=== PATIENT | male | born 1990 | race African-American/Black ===

== ENCOUNTER 2019-07-14 17:41 | Emergency (ER) | payer SELFPAY ==
[2019-07-14] MEDS ORDERED: METHYLPREDNISOLONE 125 MG INJ ONE (18:18)
[2019-07-14] MEDS ORDERED: IPRATROPIUM BROM 0.5MG/2.5ML ONE (18:19)
[2019-07-14] MEDS ORDERED: ALBUTEROL 2.5 MG/3 ML NEB SOL ONE ×2 (18:19→19:33)
[2019-07-14 18:26] LABS: Absolute Lymphocytes (CBC) 4.8 K/uL (0.7-4.9); Basophils % 0.8 % (0-1.3); Hematocrit 42.1 % (39.6-49.0); Lymphocytes % 37.3 % (15.3-44.8); MPV 9.2 fL (7.6-11.3); RBC Red Blood Cell Count 4.67 M/uL (4.33-5.43)
--- NOTE | 2019-07-14 18:39 | RAD REPORT ---
EXAM DESCRIPTION: RAD - Chest Single View - 07/14/2019 6:19 pm CLINICAL HISTORY: COUGH Chest pain. COMPARISON: <Comparisons> FINDINGS: Portable technique limits examination quality. The lungs are grossly clear. The heart is normal in size. No displaced fractures. IMPRESSION: No acute intrathoracic process suspected.
[2019-07-14 18:43] LABS: ALT/SGPT 31 U/L (12-78); AST/SGOT 27 U/L (15-37); Albumin 3.8 g/dL (3.4-5.0); Alkaline Phosphatase 102 U/L (45-117); BUN Blood Urea Nitrogen 15 mg/dL (7-18); Bicarbonate 28 mmol/L (21-32); Bilirubin Direct 0.1 mg/dL (0-0.2); Bilirubin Total 0.4 mg/dL (0.2-1.0); Glucose Level 86 mg/dL (74-106); Magnesium 2.3 mg/dL (1.8-2.4); NT PRO-BNP 68 pg/mL (<125); Potassium 3.8 mmol/L (3.5-5.1); Protein, Total 8.6 g/dL (6.4-8.2); Sodium Level 141 mmol/L (136-145); Troponin (Emerg Dept Use Only) < 0.02 ng/mL (0.0-0.045)
[2019-07-14] MEDS ORDERED: AZITHROMYCIN 250 MG TAB ONE (19:06)
[2019-07-14] MEDS ORDERED: predniSONE 20 MG TAB ONE (19:07)
[2019-07-14] MEDS ORDERED: CEFTRIAXONE/SWI 1gm 1 GM/10 ML SYR ONE (19:07)
--- NOTE | 2019-07-14 19:32 | ER ---
Nurse's Notes [facility] Name: Jb Siddiqui Age: 29 yrs Sex: Male : 1990 Arrival Date: 07/14/2019 Time: 17:47 Bed 7 Private MD: Diagnosis: Asthma;Bronchitis, not specified as acute or chronic Presentation: 07/14 17:54 Presenting complaint: Nonproductive cough, chest tightness, and SOB x 3 days. Denies hb fever. Transition of care: patient was not received from another setting of care. Onset of symptoms was July 12, 2019. Risk Assessment: Do you want to hurt yourself or someone else? Patient reports no desire to harm self or others. Care prior to arrival: None. 17:54 Method Of Arrival: Ambulatory hb 17:54 Acuity: JOSELO 3 hb 18:26 Initial Sepsis Screen: Does the patient meet any 2 criteria? No. Patient's initial sv sepsis screen is negative. Does the patient have a suspected source of infection? No. Patient's initial sepsis screen is negative. Triage Assessment: 20:41 General: Appears in no apparent distress. Respiratory: the patient has mild shortness ao of breath. Historical: - Allergies: 17:55 No Known Allergies; hb - PMHx: 17:55 Asthma; hb - PSHx: 17:55 None; hb - Immunization history:: Adult Immunizations up to date. - Coronavirus screen:: The patient has NOT traveled to [place] in the past 14 days. The patient has NOT had contact with known/suspected case of Coronavirus? Proceed with normal triage procedures. - Social history:: Smoking status: Patient denies any tobacco usage or history of. - Family history:: not pertinent. - Ebola Screening: : No symptoms or risks identified at this time. Screenin:10 Abuse screen: Denies threats or abuse. Denies injuries from another. Nutritional sv screening: No deficits noted. Tuberculosis screening: No symptoms or risk factors identified. Fall Risk None identified. Assessment: 18:10 General: Appears in no apparent distress. uncomfortable, well groomed, well developed, sv Behavior is calm, cooperative, appropriate for age. Pain: Complains of pain in chest Pain currently is 10 out of 10 on a pain scale. Quality of pain is described as "tightness" Pain began 2-3 days ago. Is intermittent, episodic, Aggravated by "deep breathing". Neuro: Level of Consciousness is awake, alert, obeys commands, Oriented to person, place, time, situation, Moves all extremities. Full function Gait is steady, Speech is normal. Cardiovascular: Heart tones S1 S2 present Patient's skin is warm and dry. Rhythm is sinus rhythm. Respiratory: Reports shortness of breath on exertion cough that is non-productive, pain with cough Airway is patent Respiratory effort is even, unlabored, Respiratory pattern is regular, symmetrical, Breath sounds with wheezes bilaterally. Derm: Skin is intact, Skin is pink, warm \\T\\ dry. Musculoskeletal: Range of motion: intact in all extremities. 19:20 Reassessment: Patient appears in no apparent distress at this time. Patient and/or sv family updated on plan of care and expected duration. Pain level reassessed. Patient is alert, oriented x 3, equal unlabored respirations, skin warm/dry/pink. Patient states feeling better. Patient states symptoms have improved. 20:41 Reassessment: DC given to patient. patient agree with the POC and to follow up with PCP amalia and Dr Lopze. Patient agree with a smoking sensations and viping. Patient was educated in smoking and viping. Vital Signs: 17:55 BP 151 / 101; Pulse 66; Resp 20; Temp 97.5; Pulse Ox 99% on R/A; Weight 102.06 kg; hb Height 6 ft. (182.88 cm); Pain 10/10; 18:55 BP 145 / 89; Pulse 89; Resp 20; Pulse Ox 96% ; sv 19:32 BP 145 / 89; Pulse 86; Resp 18; Pulse Ox 100% ; ao 20:40 BP 138 / 80; Pulse 86; Resp 19; Pulse Ox 100% on R/A; Pain 0/10; ao 17:55 Body Mass Index 30.52 (102.06 kg, 182.88 cm) ED Course: 17:47 Patient arrived in ED. fj1 17:55 Triage completed. hb 17:55 Arm band placed on. 17:57 Sudhakar Siddiqui MD is Attending Physician. [facility] 17:58 Patient has correct armband on for positive identification. Bed in low position. Call sv light in reach. Adult w/ patient. 17:59 Desiree Zaragoza RN is Primary Nurse. sv 18:10 Inserted saline lock: 20 gauge in left forearm, using aseptic technique. Blood sv collected. Flushed left forearm with 2 ml normal saline. 18:15 quality assurance monitor body on. Pulse ox on. NIBP on. mh5 18:15 EKG done, by ED staff, reviewed by Sudhakar Siddiqui MD. 5 18:25 Troponin (emerg Dept Use Only) Sent. sv 18:26 ED physician to see patient. sv 18:26 Basic Metabolic Panel Sent. sv 18:26 CBC with Diff Sent. sv 18:26 LFT's Sent. sv 18:26 Magnesium Sent. sv 18:26 NT PRO-BNP Sent. sv 18:26 XRAY Chest (1 view) Sent. sv 19:26 Report given to Pawel AUSTIN and Christian AUSTIN. sv 19:29 Aaron Brito MD is Referral Physician. nahid 20:35 No provider procedures requiring assistance completed. IV discontinued, intact, ao bleeding controlled, No redness/swelling at site. Pressure dressing applied. Administered Medications: 18:20 Drug: Albuterol - atroVENT (3:1) (2.5 mg - 0.5 mg) 3 ml Route: Nebulizer; sv 19:06 Follow up: Response: No adverse reaction sv 18:20 Drug: SOLU-Medrol 125 mg Route: IVP; Site: left forearm; sv 19:06 Follow up: Response: No adverse reaction sv 19:18 Drug: Rocephin 1 grams Route: IV; Rate: per protocol; Site: left forearm; sv 20:45 Follow up: Response: No adverse reaction; IV Status: Completed infusion; IV Intake: 10mlao 19:20 Drug: Zithromax 500 mg Route: PO; sv 20:45 Follow up: Response: No adverse reaction ao 19:20 Drug: predniSONE 60 mg Route: PO; sv 20:45 Follow up: Response: No adverse reaction ao 19:32 Drug: Albuterol 5 mg Route: Inhalation; ao 20:44 Follow up: Response: No adverse reaction ao 20:11 Drug: Decadron - Dexamethasone 8 mg Route: IVP; Site: left femoral; ao 20:44 Follow up: Response: No adverse reaction ao 20:12 Drug: Zofran 4 mg Route: IVP; Site: left forearm; ao 20:44 Follow up: Response: No adverse reaction ao Intake: 20:45 IV: 10ml; Total: 10ml. ao Outcome: 19:29 Discharge ordered by . nahid 20:40 Discharged to home ambulatory. ao 20:40 Condition: good 20:40 Discharge instructions given to patient, Instructed on discharge instructions, follow up and referral plans. Demonstrated understanding of instructions, follow-up care, medications, Prescriptions given X 4. 20:44 Patient left the ED. ao Signatures: Desiree Zaragoza RN RN sv Anderson, Corey, MD MD cha Ortiz, Alex, RN RN ao Baxter, Heather, RN RN hb Martinez, Maria [facility] Kamron Simmons [facility] Corrections: (The following items were deleted from the chart) 19:34 19:32 BP 134 / 75; Pulse 114bpm; Resp 24bpm; Pulse Ox 100%; ao ao
--- NOTE | 2019-07-14 19:33 | EDPHYS ---
Physician Documentation [facility] Name: Jb Siddiqui Age: 29 yrs Sex: Male : 1990 Arrival Date: 07/14/2019 Time: 17:47 Bed 7 Private MD: ED Physician Sudhakar Siddiqui HPI: 07/14 18:36 This 29 yrs old Black Male presents to ER via Ambulatory with complaints of Shortness nahid Of Breath, Breathing Difficulty. 18:36 The patient has shortness of breath at rest, with light activity. Onset: The nahid symptoms/episode began/occurred 2 day(s) ago. Duration: The symptoms are continuous, and are steadily getting worse. The patient's shortness of breath is aggravated by coughing. Associated signs and symptoms: Pertinent positives: non-productive cough. Severity of symptoms: At their worst the symptoms were mild in the emergency department the symptoms are unchanged. The patient has experienced similar episodes in the past, several times. Historical: - Allergies: 17:55 No Known Allergies; hb - PMHx: 17:55 Asthma; hb - PSHx: 17:55 None; hb - Immunization history:: Adult Immunizations up to date. - Coronavirus screen:: The patient has NOT traveled to [place] in the past 14 days. The patient has NOT had contact with known/suspected case of Coronavirus? Proceed with normal triage procedures. - Social history:: Smoking status: Patient denies any tobacco usage or history of. - Family history:: not pertinent. - Ebola Screening: : No symptoms or risks identified at this time. ROS: 18:36 Constitutional: Negative for fever, chills, and weight loss, Eyes: Negative for injury, nahid pain, redness, and discharge, ENT: Negative for injury, pain, and discharge, Neck: Negative for injury, pain, and swelling, Cardiovascular: Negative for chest pain, palpitations, and edema, Abdomen/GI: Negative for abdominal pain, nausea, vomiting, diarrhea, and constipation, Back: Negative for injury and pain, : Negative for injury, bleeding, discharge, and swelling, MS/Extremity: Negative for injury and deformity, Skin: Negative for injury, rash, and discoloration, Neuro: Negative for headache, weakness, numbness, tingling, and seizure, Psych: Negative for depression, anxiety, suicide ideation, homicidal ideation, and hallucinations, Allergy/Immunology: Negative for hives, rash, and allergies, Endocrine: Negative for neck swelling, polydipsia, polyuria, polyphagia, and marked weight changes, Hematologic/Lymphatic: Negative for swollen nodes, abnormal bleeding, and unusual bruising. 18:36 Respiratory: Positive for cough, shortness of breath, wheezing, expiratory. Exam: 18:36 Constitutional: This is a well developed, well nourished patient who is awake, alert, nahid and in no acute distress. Head/Face: Normocephalic, atraumatic. Eyes: Pupils equal round and reactive to light, extra-ocular motions intact. Lids and lashes normal. Conjunctiva and sclera are non-icteric and not injected. Cornea within normal limits. Periorbital areas with no swelling, redness, or edema. ENT: Nares patent. No nasal discharge, no septal abnormalities noted. Tympanic membranes are normal and external auditory canals are clear. Oropharynx with no redness, swelling, or masses, exudates, or evidence of obstruction, uvula midline. Mucous membranes moist. Neck: Trachea midline, no thyromegaly or masses palpated, and no cervical lymphadenopathy. Supple, full range of motion without nuchal rigidity, or vertebral point tenderness. No Meningismus. Chest/axilla: Normal chest wall appearance and motion. Nontender with no deformity. No lesions are appreciated. Cardiovascular: Regular rate and rhythm with a normal S1 and S2. No gallops, murmurs, or rubs. Normal PMI, no JVD. No pulse deficits. Abdomen/GI: Soft, non-tender, with normal bowel sounds. No distension or tympany. No guarding or rebound. No evidence of tenderness throughout. Back: No spinal tenderness. No costovertebral tenderness. Full range of motion. Male : Normal genitalia with no discharge or lesions. Skin: Warm, dry with normal turgor. Normal color with no rashes, no lesions, and no evidence of cellulitis. MS/ Extremity: Pulses equal, no cyanosis. Neurovascular intact. Full, normal range of motion. Neuro: Awake and alert, GCS 15, oriented to person, place, time, and situation. Cranial nerves II-XII grossly intact. Motor strength 5/5 in all extremities. Sensory grossly intact. Cerebellar exam normal. Normal gait. Psych: Awake, alert, with orientation to person, place and time. Behavior, mood, and affect are within normal limits. 18:36 Respiratory: mild respiratory distress is noted, moderate respiratory distress is noted, Respirations: labored breathing, that is mild, Breath sounds: decreased breath sounds, rhonchi, that are mild, wheezing: that is mild, Respiratory rate: 20 18:36 Musculoskeletal/extremity: DVT Exam: No signs of deep vein thrombosis. no pain, no swelling, no tenderness, negative Homans' sign noted on exam, no appreciated bluish discoloration, no erythema, no increased warmth. Vital Signs: 17:55 BP 151 / 101; Pulse 66; Resp 20; Temp 97.5; Pulse Ox 99% on R/A; Weight 102.06 kg; hb Height 6 ft. (182.88 cm); Pain 10/10; 18:55 BP 145 / 89; Pulse 89; Resp 20; Pulse Ox 96% ; sv 19:32 BP 145 / 89; Pulse 86; Resp 18; Pulse Ox 100% ; ao 20:40 BP 138 / 80; Pulse 86; Resp 19; Pulse Ox 100% on R/A; Pain 0/10; ao 17:55 Body Mass Index 30.52 (102.06 kg, 182.88 cm) hb MDM: 17:58 Patient medically screened. [facility] 18:38 Data reviewed: vital signs, nurses notes, lab test result(s), EKG, radiologic studies, nahid plain films. 02 17:58 Order name: Troponin (emerg Dept Use Only) [facility] 07/14 17:58 Order name: Basic Metabolic Panel [facility] 07/14 17:58 Order name: CBC with Diff [facility] 07/14 17:58 Order name: LFT's [facility] 07/14 17:58 Order name: Magnesium [facility] 07/14 17:58 Order name: NT PRO-BNP [facility] 07/14 17:58 Order name: XRAY Chest (1 view) [facility] 07/14 18:29 Order name: CBC with Automated Diff; Complete Time: 18:36 [facility] 07/14 18:45 Order name: Basic Metabolic Panel; Complete Time: 19:02 [facility] 07/14 18:45 Order name: Liver (Hepatic) Function; Complete Time: 19:02 [facility] 07/14 18:45 Order name: Troponin (Emerg Dept Use Only); Complete Time: 19:02 [facility] 07/14 18:45 Order name: NT PRO-BNP; Complete Time: 19:02 [facility] 07/14 18:45 Order name: Magnesium; Complete Time: 19:02 [facility] 07/14 20:14 Order name: RAD [facility] 07/14 17:58 Order name: EKG - Nurse/Tech; Complete Time: 18:15 [facility] 07/14 17:58 Order name: EKG; Complete Time: 17:59 [facility] 07/14 17:58 Order name: Cardiac monitoring; Complete Time: 18:15 [facility] 07/14 17:58 Order name: IV Saline Lock; Complete Time: 18:26 [facility] 07/14 17:58 Order name: Labs collected and sent; Complete Time: 18:29 [facility] 07/14 17:58 Order name: O2 Per Protocol; Complete Time: 18:25 [facility] 07/14 17:58 Order name: O2 Sat Monitoring; Complete Time: 18:25 [facility] Administered Medications: 18:20 Drug: Albuterol - atroVENT (3:1) (2.5 mg - 0.5 mg) 3 ml Route: Nebulizer; sv 19:06 Follow up: Response: No adverse reaction sv 18:20 Drug: SOLU-Medrol 125 mg Route: IVP; Site: left forearm; sv 19:06 Follow up: Response: No adverse reaction sv 19:18 Drug: Rocephin 1 grams Route: IV; Rate: per protocol; Site: left forearm; sv 20:45 Follow up: Response: No adverse reaction; IV Status: Completed infusion; IV Intake: 10mlao 19:20 Drug: Zithromax 500 mg Route: PO; sv 20:45 Follow up: Response: No adverse reaction ao 19:20 Drug: predniSONE 60 mg Route: PO; sv 20:45 Follow up: Response: No adverse reaction ao 19:32 Drug: Albuterol 5 mg Route: Inhalation; ao 20:44 Follow up: Response: No adverse reaction ao 20:11 Drug: Decadron - Dexamethasone 8 mg Route: IVP; Site: left femoral; ao 20:44 Follow up: Response: No adverse reaction ao 20:12 Drug: Zofran 4 mg Route: IVP; Site: left forearm; ao 20:44 Follow up: Response: No adverse reaction ao Disposition: 07/14/19 19:29 Discharged to Home. Impression: Asthma, Bronchitis, not specified as acute or chronic. - Condition is Stable. - Discharge Instructions: Acute Bronchitis, Adult, Asthma, Adult, Upper Respiratory Infection, Adult, Upper Respiratory Infection, Adult, [id number], Asthma, Adult, [id number]. - Prescriptions for Albuterol Sulfate 2.5 mg /3 mL (0.083 %) Inhalation Solution for Nebulization - inhale 1 unit by NEBULIZATION route every 8 hours As needed; 1 box. Zithromax Z- Lion 250 mg Oral Tablet - take 1 tablet by ORAL route as directed for 5 days Day 1 - take two (2) tablets one time. Day 2, 3, 4 , 5 take one (1) tablet once daily.; 6 tablet. Prednisone 20 mg Oral Tablet - take 2 tablet by ORAL route once daily for 5 days; 10 tablet. Albuterol Sulfate 90 mcg/actuation - inhale 1-2 puff by INHALATION route every 4-6 hours; 1 Inhaler. - Medication Reconciliation Form, Thank You Letter, Antibiotic Education, Prescription Opioid Use form. - Follow up: Private Physician; When: 2 - 3 days; Reason: Recheck today's complaints, Continuance of care, Re-evaluation by your physician. Follow up: Aaron Brito; When: 2 - 3 days; Reason: Recheck today's complaints, Re-evaluation by your physician. - Problem is new. - Symptoms have improved. Signatures: Dispatcher [employer] Desiree Dawson RN RN sv Anderson, Corey, MD MD cha Ortiz, Alex, RN RN ao Baxter, Heather, RN RN Corrections: (The following items were deleted from the chart) 20:44 19:29 07/14/2019 19:29 Discharged to Home. Impression: Asthma; Bronchitis, not ao specified as acute or chronic. Condition is Stable. Discharge Instructions: Acute Bronchitis, Adult, Asthma, Adult, Upper Respiratory Infection, Adult, Upper Respiratory Infection, Adult, [id number], Asthma, Adult, [id number]. Prescriptions for Albuterol Sulfate 2.5 mg /3 mL (0.083 %) Inhalation Solution for Nebulization - inhale 1 unit by NEBULIZATION route every 8 hours As needed; 1 box, Zithromax Z-Lion 250 mg Oral Tablet - take 1 tablet by ORAL route as directed for 5 days Day 1 - take two (2) tablets one time. Day 2, 3, 4 , 5 take one (1) tablet once daily.; 6 tablet, Prednisone 20 mg Oral Tablet - take 2 tablet by ORAL route once daily for 5 days; 10 tablet, Albuterol Sulfate 90 mcg/actuation - inhale 1-2 puff by INHALATION route every 4-6 hours; 1 Inhaler. and Forms are Medication Reconciliation Form, Thank You Letter, Antibiotic Education, Prescription Opioid Use. Follow up: Private Physician; When: 2 - 3 days; Reason: Recheck today's complaints, Continuance of care, Re-evaluation by your physician. Follow up: Aaron Brito; When: 2 - 3 days; Reason: Recheck today's complaints, Re-evaluation by your physician. Problem is new. Symptoms have improved. nahid
[2019-07-14] MEDS ORDERED: dexAMETHasone 4 MG/ML VIAL ONE (20:11)
[2019-07-14] MEDS ORDERED: ONDANSETRON 4 MG/2 ML VIAL ONE (20:11)
[2019-07-14 22:42] VITALS: TEMP 97.5
[2019-07-14 22:43] VITALS: BP 145/89
[2019-07-14 22:44] VITALS: O2SAT 100
--- NOTE | 2019-07-15 15:26 | EKG ---
Test Date: 2019-07-14 Test Time: 18:06:48 M48/M60 Tank Driver: DUGLAS MEASUREMENT RESULTS: Intervals: Rate: 92 UT: 130 QRSD: 146 QT: 412 QTc: 509 [place]: P: 52 UT: 130 QRS: 10 T: 18 INTERPRETIVE STATEMENTS: Poor data quality, interpretation may be adversely affected Sinus rhythm with occasional premature ventricular complexes Right bundle branch block Abnormal ECG No previous ECG available for comparison Electronically Signed On 07-15-19 15:24:58 VISION TEACHER by Tico Zapata
== END 2019-07-14 20:44 | disposition home or self-care (01) ==
LOC: ER 17:41
DX: J40 Bronchitis, not specified as acute or chronic (principal); J45.909 Unspecified asthma, uncomplicated
CPT/HCPCS: 36415; 71045; 80048; 80076; 83735; 83880; 84484; 85025; 93005; 94640; 96365; 96375; 99285; J0696; J2405; J2930; J7512

== ENCOUNTER 2020-11-11 11:41 | Emergency (ER) | payer SELFPAY ==
[2020-11-11] MEDS ORDERED: Ringers Lactate 2,000 ML IV ONE (12:17)
[2020-11-11 12:22] LABS: Absolute Lymphocytes (CBC) 3.1 K/uL (0.7-4.9); Basophils % 0.7 % (0-1.3); Hematocrit 44.8 % (39.6-49.0); Lymphocytes % 27.6 % (15.3-44.8); MPV 9.2 fL (7.6-11.3); RBC Red Blood Cell Count 4.82 M/uL (4.33-5.43)
[2020-11-11 12:59] LABS: Potassium 3.3 mmol/L (3.5-5.1)
[2020-11-11] MEDS ORDERED: DIAZEPAM 10 MG/2 ML INJ SYRINGE ONE (13:05)
[2020-11-11 13:58] LABS: Urine Blood Negative (Negative); Urine Glucose Negative (Negative); Urine Protein 1+ (Negative); Urine Specific Gravity 1.025 (1.005-1.030); Urine pH 5.5 (5.0-7.0)
--- NOTE | 2020-11-11 17:09 | EDPHYS ---
Physician Documentation [facility] Name: Jb Siddiqui Age: 30 yrs Sex: Male : 1990 Arrival Date: 11/11/2020 Time: 11:42 Bed 23 Private MD: ED Physician Jaden Tanner HPI: 11/11 13:28 This 30 yrs old Black Male presents to ER via Wheelchair with complaints of Heat jr8 Exhaution . 13:28 Patient stated that he has been working outside all morning. Started to sweat heavily jr8 and had body cramps. Severity of symptoms: At their worst the symptoms were moderate in the emergency department the symptoms are unchanged. The patient has not experienced similar symptoms in the past. The patient has not recently seen a physician. Historical: - Allergies: 11:54 No Known Allergies; ap3 - Home Meds: 11:54 None [Active]; ap3 - PMHx: 11:54 Asthma; ap3 - PSHx: 11:54 None; ap3 - Immunization history:: Adult Immunizations up to date. - Social history:: Smoking status: Patient reports the use of cigarette tobacco products, 2 packs/week. ROS: 13:28 Eyes: Negative for injury, pain, redness, and discharge, ENT: Negative for injury, jr8 pain, and discharge, Neck: Negative for injury, pain, and swelling, Cardiovascular: Negative for chest pain, palpitations, and edema, Respiratory: Negative for shortness of breath, cough, wheezing, and pleuritic chest pain, Abdomen/GI: Negative for abdominal pain, nausea, vomiting, diarrhea, and constipation, Back: Negative for injury and pain, MS/Extremity: Negative for injury and deformity, Skin: Negative for injury, rash, and discoloration, Neuro: Negative for headache, weakness, numbness, tingling, and seizure. 13:28 Constitutional: Positive for fatigue, malaise. Exam: 13:28 Eyes: Pupils equal round and reactive to light, extra-ocular motions intact. Lids and jr8 lashes normal. Conjunctiva and sclera are non-icteric and not injected. Cornea within normal limits. Periorbital areas with no swelling, redness, or edema. ENT: Nares patent. No nasal discharge, no septal abnormalities noted. Tympanic membranes are normal and external auditory canals are clear. Oropharynx with no redness, swelling, or masses, exudates, or evidence of obstruction, uvula midline. Mucous membranes moist. Neck: Trachea midline, no thyromegaly or masses palpated, and no cervical lymphadenopathy. Supple, full range of motion without nuchal rigidity, or vertebral point tenderness. No Meningismus. Cardiovascular: Regular rate and rhythm with a normal S1 and S2. No gallops, murmurs, or rubs. Normal PMI, no JVD. No pulse deficits. Respiratory: Lungs have equal breath sounds bilaterally, clear to auscultation and percussion. No rales, rhonchi or wheezes noted. No increased work of breathing, no retractions or nasal flaring. Abdomen/GI: Soft, non-tender, with normal bowel sounds. No distension or tympany. No guarding or rebound. No evidence of tenderness throughout. MS/ Extremity: Pulses equal, no cyanosis. Neurovascular intact. Full, normal range of motion. Neuro: Awake and alert, GCS 15, oriented to person, place, time, and situation. Cranial nerves II-XII grossly intact. Motor strength 5/5 in all extremities. Sensory grossly intact. Cerebellar exam normal. Normal gait. 13:28 Constitutional: The patient appears alert, awake, diaphoretic. Vital Signs: 11:49 BP 138 / 81 LA (auto/lg); Pulse 101; Resp 15; Pulse Ox 96% on R/A; Weight 108.86 kg ap3 (R); Height 5 ft. 11 in. (180.34 cm) (R); 11:58 Temp 98.6(O); ap3 13:24 BP 149 / 93; Pulse 100; Resp 17; Pulse Ox 98% on R/A; ap3 14:23 Pulse 87; Resp 18; Pulse Ox 100% on R/A; Pain 0/10; ap3 14:38 BP 135 / 91; ap3 15:47 BP 134 / 92; Resp 17; Pulse Ox 100% on R/A; Pain 0/10; ap3 11:49 Body Mass Index 33.47 (108.86 kg, 180.34 cm) ap3 MDM: 11:45 Patient medically screened. [facility] 13:28 Data reviewed: vital signs, nurses notes, lab test result(s). Data interpreted: Pulse jr8 oximetry: on room air is 98 %. Interpretation: normal. Counseling: I had a detailed discussion with the patient and/or guardian regarding: the historical points, exam findings, and any diagnostic results supporting the discharge/admit diagnosis, lab results. 17:08 ED course: Patient doing much better. Well hydrated. Will send home and to be off for jr8 next 48 hours. 3 L minimum water/Electrolyte for next 72 hours. If he feels worse or it starts again to come back to ED. 11/11 11:46 Order name: CBC with Diff; Complete Time: 13:03 8 11/11 11:46 Order name: Basic Metabolic Panel; Complete Time: 13:03 8 11/11 11:46 Order name: CK; Complete Time: 13:03 [facility] 11/11 13:57 Order name: Urine Dipstick-Ancillary; Complete Time: 14:09 EDMN 11/11 14:18 Order name: CK; Complete Time: 19:18 [facility] 11/11 11:46 Order name: IV; Complete Time: 12:10 [facility] 11/11 13:04 Order name: Urine Dipstick-Ancillary (obtain specimen); Complete Time: 13:08 [facility] 11/11 14:51 Order name: Labs - recollect needed: recollect ck; Complete Time: 17:44 bd Administered Medications: 12:11 Drug: Ringers - Lactated Ringers Solution 1000 ml Route: IV; Rate: bolus; Site: right ap3 antecubital; 17:49 Follow up: IV Status: Completed infusion; IV Intake: 1000ml ap3 12:11 Drug: Ringers - Lactated Ringers Solution 1000 ml Route: IV; Rate: bolus; Site: right ap3 antecubital; 17:49 Follow up: IV Status: Completed infusion; IV Intake: 1000ml ap3 12:50 Drug: Valium (diazepam) 5 mg Route: IVP; Site: right antecubital; ap3 13:06 Follow up: Response: No adverse reaction; Pain is decreased ap3 Disposition: 11/12 07:17 Co-signature as Attending Physician, Jaden Tanner MD I agree with the assessment and kdr plan of care. Disposition: 11/11/20 17:09 Discharged to Home. Impression: Heat exhaustion, unspecified, Heat cramp. - Condition is Stable. - Discharge Instructions: Heat Exhaustion Information. - Medication Reconciliation Form, Thank You Letter, Antibiotic Education, Prescription Opioid Use form. - Follow up: Private Physician; When: 2 - 3 days; Reason: Recheck today's complaints, Continuance of care, Re-evaluation by your physician. - Problem is new. - Symptoms have improved. Signatures: Dispatcher [employer] EDMS Maheshtracy VanesaJaden Jones MD MD kdr Cuate Becerra PA PA jr8 Jennyfer Mcwilliams RN RN ap3 Corrections: (The following items were deleted from the chart) 11/11 17:49 17:09 11/11/2020 17:09 Discharged to Home. Impression: Heat exhaustion, unspecified; ap3 Heat cramp. Condition is Stable. Forms are Medication Reconciliation Form, Thank You Letter, Antibiotic Education, Prescription Opioid Use. Follow up: Private Physician; When: 2 - 3 days; Reason: Recheck today's complaints, Continuance of care, Re-evaluation by your physician. Problem is new. Symptoms have improved. jr8
--- NOTE | 2020-11-11 17:09 | ER ---
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 Coronavirus screen: ap3 At this time, the client does not indicate any symptoms associated with coronavirus-19. Ebola Screen: No symptoms or risks identified at this time. Initial Sepsis Screen:. Initial Sepsis Screen: Does the patient meet any 2 criteria? No. Patient's initial sepsis screen is negative. Does the patient have a suspected source of infection? No. Patient's initial sepsis screen is negative. Risk Assessment: Do you want to hurt yourself or someone else? Patient reports no desire to harm self or others. Onset of symptoms was November 11, 2020. 11:49 Method Of Arrival: Wheelchair ap3 11:49 Acuity: JOSELO 3 ap3 Triage Assessment: 11:52 General: Appears comfortable, Behavior is calm, cooperative, appropriate for age. Pain: ap3 Complains of pain in abdomen Pain does not radiate. Pain currently is 4 out of 10 on a pain scale. Quality of pain is described as crampy, Pain began gradually, 2-3 days ago. Is intermittent. EENT: No signs and/or symptoms were reported regarding the EENT system. Neuro: Level of Consciousness is awake, alert, obeys commands, Oriented to person, place, time, situation, Gait is steady, Speech is normal. Cardiovascular: Denies chest pain, shortness of breath, Capillary refill < 3 seconds. Respiratory: Airway is patent Respiratory effort is even, unlabored, Respiratory pattern is regular, symmetrical. GI: patient reports stomach cramping when getting hot while working the last couple of days. : No signs and/or symptoms were reported regarding the genitourinary system. Derm: Skin is diaphoretic. Historical: - Allergies: 11:54 No Known Allergies; ap3 - Home Meds: 11:54 None [Active]; ap3 - PMHx: 11:54 Asthma; ap3 - PSHx: 11:54 None; ap3 - Immunization history:: Adult Immunizations up to date. - Social history:: Smoking status: Patient reports the use of cigarette tobacco products, 2 packs/week. Screenin:54 Abuse screen: Denies threats or abuse. Nutritional screening: No deficits noted. ap3 Tuberculosis screening: No symptoms or risk factors identified. Fall Risk None identified. Assessment: 11:55 Reassessment: see triage assessment. ap3 13:27 Reassessment: Patient and/or family updated on plan of care and expected duration. Pain ap3 level reassessed. Patient is alert, oriented x 3, equal unlabored respirations, skin warm/dry/pink. 13:29 General: patient laughing and visiting with family at the bedside. ap3 15:46 Reassessment: Patient and/or family updated on plan of care and expected duration. Pain ap3 level reassessed. Patient is alert, oriented x 3, equal unlabored respirations, skin warm/dry/pink. patient states he is ready to leave. provider notified and came to bedside to discuss current plan of care. 17:05 General: patient is pacing in the room, stating he is about to leave against medical ap3 advice. Patient has been updated on pending lab results. 17:26 Reassessment: awaiting lab to draw prior to patient being discharged-patient refusing ap3 to have vital signs taken at this time. Vital Signs: 11:49 BP 138 / 81 LA (auto/lg); Pulse 101; Resp 15; Pulse Ox 96% on R/A; Weight 108.86 kg ap3 (R); Height 5 ft. 11 in. (180.34 cm) (R); 11:58 Temp 98.6(O); ap3 13:24 BP 149 / 93; Pulse 100; Resp 17; Pulse Ox 98% on R/A; ap3 14:23 Pulse 87; Resp 18; Pulse Ox 100% on R/A; Pain 0/10; ap3 14:38 BP 135 / 91; ap3 15:47 BP 134 / 92; Resp 17; Pulse Ox 100% on R/A; Pain 0/10; ap3 11:49 Body Mass Index 33.47 (108.86 kg, 180.34 cm) ap3 ED Course: 11:42 Patient arrived in ED. bd 11:42 Jennyfer Mcwilliams, RN is Primary Nurse. ap3 11:45 Cuate Becerra PA is PHCP. jr8 11:45 Jaden Tanner MD is Attending Physician. jr8 11:52 Triage completed. ap3 11:54 Arm band placed on right wrist. ap3 11:55 Patient has correct armband on for positive identification. Bed in low position. Call ap3 light in reach. Side rails up X 1. Adult w/ patient. youth nutritional monitor on. Pulse ox on. NIBP on. Door closed. Noise minimized. 12:05 Inserted saline lock: 20 gauge in right antecubital area, using aseptic technique. ap3 Blood collected. 13:27 Pt visited by mother, father. ap3 17:27 IV discontinued, intact, bleeding controlled, No redness/swelling at site. Pressure ap3 dressing applied. 17:44 No provider procedures requiring assistance completed. ap3 Administered Medications: 12:11 Drug: Ringers - Lactated Ringers Solution 1000 ml Route: IV; Rate: bolus; Site: right ap3 antecubital; 17:49 Follow up: IV Status: Completed infusion; IV Intake: 1000ml ap3 12:11 Drug: Ringers - Lactated Ringers Solution 1000 ml Route: IV; Rate: bolus; Site: right ap3 antecubital; 17:49 Follow up: IV Status: Completed infusion; IV Intake: 1000ml ap3 12:50 Drug: Valium (diazepam) 5 mg Route: IVP; Site: right antecubital; ap3 13:06 Follow up: Response: No adverse reaction; Pain is decreased ap3 Intake: 17:49 IV: 1000ml; Total: 1000ml. ap3 17:49 IV: 1000ml; Total: 2000ml. ap3 Outcome: 17:09 Discharge ordered by . jr8 17:49 Discharged to home ambulatory. ap3 17:49 Condition: good 17:49 Discharge instructions given to patient, Instructed on discharge instructions, follow up and referral plans. Demonstrated understanding of instructions, follow-up care. 17:49 Patient left the ED. ap3 Signatures: Vanesa Santana Josh, PA PA jr8 Jennyfer Mcwilliams RN RN ap3 Corrections: (The following items were deleted from the chart) 17:27 17:26 Reassessment: awaiting lab to draw prior to patient being discharged. ap3 ap3
[2020-11-11 17:56] VITALS: TEMP 98.6
[2020-11-11 17:58] VITALS: O2SAT 100
[2020-11-11 18:01] VITALS: BP 134/92
== END 2020-11-11 17:49 | disposition home or self-care (01) ==
LOC: ER 11:41
DX: T67.2XXA Heat cramp, initial encounter (principal); F17.210 Nicotine dependence, cigarettes, uncomplicated
CPT/HCPCS: 36415; 80048; 81003; 82550; 85025; J3360; J7120

== ENCOUNTER 2023-04-23 17:06 | Emergency (ER) | payer SELFPAY ==
--- OUTSIDE RECORDS SUMMARY | 2023-04-23 17:09 | XMS REPORT | Continuity of Care Document ---
:1990 Author Organization [facility] t Address [address] [place] [address] [place] [id number] Care Team Providers Name Role Phone PCP, PATIENT DOES NOT HAVE A Primary Care Physician UnavailTIRSO Peña Attending Clinician Unavailable Tirso Sullivan MD Attending Clinician Doctor Unassigned, [place] Attending Clinician Unavailable ALMA RAZO Attending Clinician Unavailable Alma Razo DO Attending Clinician MADELIN SOLOMON Attending Clinician Unavailable Madelin Philippe Attending Clinician Problems Condition Condition Condition Status Onset Resolution Last Treating Co mments Source Name Details Category Date Date Treatment Clinician Date No known No known Disease Unive rs active active ity of problems problems [facility] Allergies, Adverse Reactions, Alerts Allergy Allergy Status Severity Reaction(s) Onset Inactive Treating Comm ents Source Name Type Date Date Clinician NO KNOWN Drug Active Univers ALLERGIE Class ity of S [facility] Social History Social Habit Start Date Stop Date Quantity Comments Source Exposure to 2022-09-01 2022-09-11 Not sure [facility] SARS-CoV-2 (event) 00:00:00 22:16:00 Medica l Branch Sex Assigned At [birth year] [facility] [place] 00:00:00 00:00:00 Medical Branch Smoking Status Start Date Stop Date Source Tobacco smoking consumption Univ [facility] unknown Branch Medications Ordered Filled Start Stop Current Ordering Indication Dosage Frequency Signature Comments Components Source Medication Medication Date Date Medication? Clinician (SIG) Name Name ondansetron 2021- No 4mg 4 mg, Univ ers (ZOFRAN-ODT 2-14 02-14 Oral, ity of ) 17:00: 15:53 ONCE, 1 [place] disintegrat 00 :00 dose, On Medi kathrine ing tablet Mon Branch 4 mg 07/11/21 at 1100, Routine ondansetron Yes [id number] 4mg Take 1 Univers 4 mg 2-14 tablet by ity of disintegrat 00:00: mouth [place] ing tablet 00 every 8 Medica l (eight) Branch hours as needed for Nausea and Vomiting (N/V). ondansetron Yes [id number] 4mg Take 1 Univers 4 mg 2-14 tablet by ity of disintegrat 00:00: mouth [place] ing tablet 00 every 8 Medica l (eight) Branch hours as needed for Nausea and Vomiting (N/V). ondansetron Yes [id number] 4mg Take 1 Univers 4 mg 2-14 tablet by ity of disintegrat 00:00: mouth [place] ing tablet 00 every 8 Medica l (eight) Branch hours as needed for Nausea and Vomiting (N/V). No known 2020-05 No Univers medications 2-16 ity of 15:05: [address] Vital Signs Vital Name Observation Time Observation Value Comments Source Systolic blood 2022-09-12 03:16:00 139 mm[Hg] [facility] Diastolic blood 2022-09-12 03:16:00 96 mm[Hg] [facility] Heart rate 2022-09-12 03:16:00 72 /min [facility] Body temperature 2022-09-12 03:16:00 37.22 Zofia [facility] Respiratory rate 2022-09-12 03:16:00 16 /min [facility] Body height 2022-09-12 03:16:00 180.3 cm [facility] Body weight 2022-09-12 03:16:00 132.224 kg [facility] BMI 2022-09-12 03:16:00 40.66 kg/m2 [facility] Oxygen saturation in 2022-09-12 03:16:00 98 /min [facility] Arterial blood by [facility] Pulse oximetry Branch Systolic blood 2021-07-11 15:29:00 164 [facility]Hg[facility] 2021-07-11 15:29:00 81 mm[Hg] Unive rsity of pressure [place] [facility] Heart rate 2021-07-11 15:29:00 89 /min [facility] [place] [facility] Body temperature 2021-07-11 15:29:00 36.72 Zofia [facility] [place] [facility] Respiratory rate 2021-07-11 15:29:00 14 /min [facility] [place] [facility] Body height 2021-07-11 15:29:00 180.3 cm [facility] [place] [facility] Body weight 2021-07-11 15:29:00 127.914 kg [facility] [place] [facility] BMI 2021-07-11 15:29:00 39.33 kg/m2 [facility] [place] [facility] Oxygen saturation in 2021-07-11 15:29:00 100 /min University of Arterial blood by [facility] Pulse oximetry Branch Systolic blood 2021-05-12 20:59:00 150 mm[Hg] Univer sity of pressure [place] [facility] Diastolic blood 2021-05-12 20:59:00 83 mm[Hg] Unive rsity of pressure [place] [facility] Heart rate 2021-05-12 20:59:00 98 /min [facility] [place] [facility] Body temperature 2021-05-12 20:59:00 37.33 Zofia [facility] [place] [facility] Respiratory rate 2021-05-12 20:59:00 18 /min [facility] [place] [facility] Body weight 2021-05-12 20:59:00 111.131 kg [facility] [place] [facility] Oxygen saturation in 2021-05-12 20:59:00 99 /min University of Arterial blood by [facility] Pulse oximetry Branch Procedures Procedure Date / Time Performed Performing Clinician Sour e NOTICE OF PRIVACY 2022-09-12 03:06:33 Doctor Unassigned, No Univ ersity of [facility] Name Medical Branch CONSENT/REFUSAL FOR 2022-09-12 03:05:57 Doctor Unassigned, No Un [facility] [place] DIAGNOSIS AND Name Medical Branch TREATMENT CONSENT/REFUSAL FOR 2021-07-11 15:26:46 Doctor Unassigned, No Un [facility] [place] DIAGNOSIS AND Name Medical Branch TREATMENT NOTICE OF PRIVACY 2021-05-12 20:55:16 Doctor Unassigned, No Univ [facility] Name Medical Branch CONSENT/REFUSAL FOR 2021-05-12 20:54:46 Doctor Unassigned, No Un [facility] DIAGNOSIS AND Name [facility] TREATMENT Encounters Start End Encounter Admission Attending Care Care Encounter Source Date/Time Date/Time Type Type Clinicians Facility Department ID 2022-09-11 2022-09-11 Emergency X NATE [facility] ERT [id number] Univers 22:18:00 23:14:00 TIRSO lugo [facility] 2022-09-11 2022-09-11 [facility] [id number] Univers 22:18:00 23:14:00 Tirso HAWK [id number] i ty of [place] [id number] [facility] [id number] [address] 2022-09-11 2022-09-11 Orders Doctor ISAIAS [id number] Univers 00:00:00 00:00:00 Only Unassigned, DORENE [id number] ity of [place] [facility] [id number] Silas [id number] [address] 2021-07-11 2021-07-11 [facility] [id number] Univers 09:30:00 10:03:00 ALMA lugo [facility] 2021-07-11 2021-07-11 [facility] [id number] Univers 09:30:00 10:03:00 Alma HAWK [id number] ity of [place] [id number] [facility] [id number] [address] 2021-05-12 2021-05-12 Emergency X [facility] ERT [id number] Univers 15:01:00 15:31:00 MADELIN lugo [facility] 2021-05-12 2021-05-12 Emergency [facility] [id number] Univers 15:01:00 15:31:00 Madelin HAWK [id number] i ty of [place] [id number] [facility] [id number] Medi kathrine 084 Branch Results Test Description Test Time Test Comments Results Result Comments Source SARS-CoV-2 (COVID-19), RT-PCR/TMA 2021-06-21 13:40:45 Test Item Value Reference Range Interpretation Comme nts SARS-CoV-2 INTERPRETATION NEGATIVE SEE NOTE S ARS-CoV-2 RNA NOT (test code = 87979) DETECTED Negative results do not preclude SARS-C oV-2 infection and should notb e used as the sole basis for patient management deci sions. Negativeresults must be combined with c linical observations, p atient history,and epi demiological information. Op timum specimen types and timin gfor peak viral levels during i nfections caused by SARS-CoV-2 h ave notbeen determined. Col lection of multiple specim ens or types ofspecimens may be necessary to detect virus. I mproper specimencollect ion and handling, seque nce variability under primers/p robes,or organism presen t below the limit of detect ion may lead to falsenegative r esults. Positive and negative pr edictive values oftesting are h ighly dependent on prevalence. False negative testresults are more likely when prevalence is high. SOURCE (test code = 66332) NASOPHARYNGEAL Note: Methodology is Sania Lima Real-Time RT-PCR. The expected result or reference range is NEGATI VE (Not Detected). For more information regarding COVID -19 testing to include clinica linformation, methodology det ail, intended use, FDA author ization andrecommended fact sheets for patients or a lthcare providers, see NewTest Announcement: S ARS-CoV-2 (COVID-19) by N AAT at URL below (note,fact shee ts are provided by method given in report:https:// www.[employer].com/ clinicians/emiliana nt-communication s/ Alternativel y, see downloadable PD F fact sheet at:https://www. [employer]/COVI D-19-RT-PCR UNL ESS OTHERWISE INDICATED, ALL TESTING PERFORMED [facility], I [place]. 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 [id number]
--- NOTE | 2023-04-23 17:31 | ER ---
Nurse's Notes [facility] Name: Jb Siddiqui Age: 32 yrs Sex: Male : 1990 Arrival Date: 04/23/2023 Time: 17:06 Bed IW4 Private MD: Diagnosis: Vomiting Presentation: 04/23 17:22 Chief complaint: Patient states: "I started vomiting last night after eating crab dip. mb9 My boss wanted me to get checked out before i come to work". Coronavirus screen: At this time, the client does not indicate any symptoms associated with coronavirus-19. Ebola Screen: No symptoms or risks identified at this time. Initial Sepsis Screen: Does the patient meet any 2 criteria? No. Patient's initial sepsis screen is negative. Does the patient have a suspected source of infection? No. Patient's initial sepsis screen is negative. Risk Assessment: Do you want to hurt yourself or someone else? Patient reports no desire to harm self or others. Onset of symptoms was April 23, 2023. 17:22 Method Of Arrival: Ambulatory 9 17:22 Acuity: JOSELO 4 mb9 Triage Assessment: 17:23 General: Appears in no apparent distress. Behavior is calm, cooperative, appropriate mb9 for age. Pain: Denies pain. EENT: No signs and/or symptoms were reported regarding the EENT system. Neuro: Donahue Agitation-Sedation Scale (RASS): 0 - Alert and Calm Level of Consciousness is awake, alert, obeys commands, Oriented to person, place, time, situation, Appropriate for age. Cardiovascular: Patient's skin is warm and dry. Respiratory: Airway is patent Respiratory effort is even, unlabored, Respiratory pattern is regular, symmetrical. GI: Abdomen is round non-distended, Bowel sounds present X 4 quads. Patient currently denies diarrhea, nausea, vomiting. : No signs and/or symptoms were reported regarding the genitourinary system. Derm: Skin is pink, warm \\T\\ dry. Musculoskeletal: Range of motion: intact in all extremities. Historical: - Allergies: 17:23 NKA; mb9 - Home Meds: 17:23 None [Active]; mb9 - PMHx: 17:23 Asthma; mb9 - PSHx: 17:23 None; mb9 - Immunization history:: Adult Immunizations up to date. - Social history:: Smoking status: Patient reports the use of cigarette tobacco products, smokes one-half pack cigarettes per day. - Family history:: not pertinent. Vital Signs: 17:22 BP 146 / 97; Pulse 71; Resp 18; Temp 97.7; Pulse Ox 100% on R/A; Weight 136.08 kg; mb9 Height 6 ft. 0 in. ; Pain 0/10; 17:22 Body Mass Index 40.69 (136.08 kg, 182.88 cm) mb9 17:22 Pain Scale: Adult mb9 ED Course: 17:14 Patient arrived in ED. mr 17:14 Luca Lamb MD is Attending Physician. rt 17:23 Triage completed. mb9 17:23 Arm band placed on. mb9 17:38 No provider procedures requiring assistance completed. Patient did not have IV access mb9 during this emergency room visit. Administered Medications: No medications were administered Outcome: 17:30 Discharge ordered by MD. rt 17:38 Discharged to home ambulatory, mb9 17:38 Condition: stable 17:38 Discharge instructions given to patient, Instructed on discharge instructions, follow up and referral plans. Demonstrated understanding of instructions, follow-up care, 17:39 Patient left the ED. mb9 Signatures: Lorin Wells, Cali Reg mr GuallpaLorin, RN RN mb9 Luca Lamb MD MD rt Corrections: (The following items were deleted from the chart) 17:25 17:22 136.08 kg; Height 6 ft. 0 in.; BMI: 40.6; mb9 mb9 17:26 17:22 Pulse 71bpm; Resp 18bpm; Pulse Ox 100% RA; Temp 97.7F; 136.08 kg; Height 6 ft. 0 mb9 in.; BMI: 40.6; Pain 0/10, Adult; mb9
--- NOTE | 2023-04-23 17:31 | EDPHYS ---
Physician Documentation [facility] [place], [place] Name: Jb Siddiqui Age: 32 yrs Sex: Male : 1990 Arrival Date: 04/23/2023 Time: 17:06 Bed IW4 Private MD: ED Physician Luca Lamb HPI: 04/23 21:44 This 32 yrs old Black Male presents to ER via Ambulatory with complaints of Vomiting. rt 21:44 Patient presents to the ED last night after vomiting after eating a crab meal. This rt vomiting has resolved spontaneously. The patient states that he longer has any nausea, never had any abdominal pain. Denies other acute complaints, symptoms are mild in severity, no other aggravating elevating factors.. Historical: - Allergies: 17:23 NKA; mb9 - Home Meds: 17:23 None [Active]; mb9 - PMHx: 17:23 Asthma; mb9 - PSHx: 17:23 None; mb9 - Immunization history:: Adult Immunizations up to date. - Social history:: Smoking status: Patient reports the use of cigarette tobacco products, smokes one-half pack cigarettes per day. - Family history:: not pertinent. ROS: 21:44 Constitutional: Negative for fever, chills, and weight loss, Cardiovascular: Negative rt for chest pain, palpitations, and edema, Respiratory: Negative for shortness of breath, cough, wheezing, and pleuritic chest pain, MS/Extremity: Negative for injury and deformity, Skin: Negative for injury, rash, and discoloration, Neuro: Negative for headache, weakness, numbness, tingling, and seizure, Psych: Negative for depression, anxiety, suicide ideation, homicidal ideation, and hallucinations, 21:44 Abdomen/GI: Positive for nausea, vomiting, Negative for abdominal pain, Exam: 21:44 Constitutional: This is a well developed, well nourished patient who is awake, alert, rt and in no acute distress. Head/Face: Normocephalic, atraumatic. Chest/axilla: Normal chest wall appearance and motion. Nontender with no deformity. No lesions are appreciated. Cardiovascular: Regular rate and rhythm with a normal S1 and S2. No gallops, murmurs, or rubs. Normal PMI, no JVD. No pulse deficits. Respiratory: Lungs have equal breath sounds bilaterally, clear to auscultation and percussion. No rales, rhonchi or wheezes noted. No increased work of breathing, no retractions or nasal flaring. Abdomen/GI: Soft, non-tender, with normal bowel sounds. No distension or tympany. No guarding or rebound. No evidence of tenderness throughout. MS/ Extremity: Pulses equal, no cyanosis. Neurovascular intact. Full, normal range of motion. Neuro: Awake and alert, GCS 15, oriented to person, place, time, and situation. Cranial nerves II-XII grossly intact. Motor strength 5/5 in all extremities. Sensory grossly intact. Cerebellar exam normal. Normal gait. Psych: Awake, alert, with orientation to person, place and time. Behavior, mood, and affect are within normal limits. Vital Signs: 17:22 BP 146 / 97; Pulse 71; Resp 18; Temp 97.7; Pulse Ox 100% on R/A; Weight 136.08 kg; mb9 Height 6 ft. 0 in. ; Pain 0/10; 17:22 Body Mass Index 40.69 (136.08 kg, 182.88 cm) mb9 17:22 Pain Scale: Adult mb9 MDM: 17:27 Patient medically screened. rt 21:44 Differential diagnosis: Gastroenteritis. Data reviewed: vital signs, nurses notes. Test rt considered but Not performed: Other Details Patient asymptomatic currently, no abdominal tenderness or distention, stable vital signs, labs, imaging not indicated at this time. Counseling: I had a detailed discussion with the patient and/or guardian regarding the historical points, exam findings, and any diagnostic results supporting the discharge/admit diagnosis, the need for outpatient follow up, to return to the emergency department if symptoms worsen or persist or if there are any questions or concerns that arise at home. Administered Medications: No medications were administered Disposition Summary: 04/23/23 17:30 Discharge Ordered Notes: Location: Home rt Problem: new rt Symptoms: are resolved rt Condition: Stable rt Diagnosis - Vomiting rt Followup: rt - With: Private Physician - When: 5 - 6 days - Reason: Discharge Instructions: - Discharge Summary Sheet mb9 - Vomiting, Adult rt Forms: - Work release form mb9 - Medication Reconciliation Form rt - Thank You Letter rt - Antibiotic Education rt - Prescription Opioid Use rt - Patient Portal Instructions rt - Leadership Thank You Letter rt Signatures: Lorin Guallpa, RN RN mb9 Luca Lamb MD MD rt
[2023-04-23 17:49] VITALS: BP 146/97; TEMP 97.7; O2SAT 100
== END 2023-04-23 17:39 | disposition home or self-care (01) ==
LOC: ER 17:06
DX: R11.10 Vomiting, unspecified (principal); J45.909 Unspecified asthma, uncomplicated; F17.210 Nicotine dependence, cigarettes, uncomplicated
CPT/HCPCS: 99282

== ENCOUNTER 2024-02-28 10:51 | Emergency (ER) | payer OTHER ==
--- NOTE | 2024-02-28 11:27 | EDPHYS ---
Physician Documentation [facility] Name: Jb Siddiqui Age: 33 yrs Sex: Male : 1990 Arrival Date: 02/28/2024 Time: 10:51 Bed DX5 Private MD: ED Physician Jb Phan HPI: 02/27 11:23 This 33 yrs old Black Male presents to ER via Unassigned with complaints of Back Pain. ms3 11:23 33-year-old male with no past medical history presents to the emergency department for ms3 lower back pain that radiates down bilateral lower extremities for 6 months. Patient denies urinary or bowel incontinence. Patient states his pain is a 9/10 and worse with movement. He denies any alleviating factors.. Historical: - Allergies: 11:34 NKA; ss - PMHx: 11:34 Asthma; ss - Immunization history:: Client reports having NOT received the Covid vaccine. - Infectious Disease History:: Denies. - Social history:: Smoking status: Patient reports the use of cigarette tobacco products, smokes one-half pack cigarettes per day. ROS: 11:23 Constitutional: Negative for fever, and chills. Cardiovascular: Negative for chest ms3 pain, and palpitations. Respiratory: Negative for shortness of breath, cough, wheezing, and pleuritic chest pain, Abdomen/GI: Negative for abdominal pain, nausea, vomiting, diarrhea, and constipation, 11:23 Skin: Negative for injury, rash, and discoloration, 11:23 Back: Positive for back pain, Exam: 11:23 Constitutional: This is a well developed, well nourished patient who is awake, alert, ms3 and in no acute distress. Chest/axilla: Normal chest wall appearance and motion. Nontender with no deformity. Cardiovascular: Regular rate and rhythm with a normal S1 and S2. No gallops, murmurs, or rubs. Normal PMI, no JVD. No pulse deficits. Respiratory: Lungs have equal breath sounds bilaterally, clear to auscultation and percussion. No rales, rhonchi or wheezes noted. No increased work of breathing, no retractions or nasal flaring. Abdomen/GI: Soft, non-tender, with normal bowel sounds. No distension or tympany. No guarding or rebound. No evidence of tenderness throughout. Skin: Warm, dry with normal turgor. Normal color with no rashes, no lesions, and no evidence of cellulitis. MS/ Extremity: Pulses equal, no cyanosis. Neurovascular intact. Full, normal range of motion. 11:23 Back: pain, that is moderate, ROM is normal, normal spinal alignment noted, CVA tenderness, is absent, muscle spasm, is appreciated in the left low back and right low back, Vital Signs: 11:32 BP 155 / 89; Pulse 96; Resp 17; Temp 98(TE); Pulse Ox 99% on R/A; Weight 136.08 kg; ss Height 5 ft. 11 in. ; Pain 9/10; 11:32 Body Mass Index 41.84 (136.08 kg, 180.34 cm) 11:32 Pain Scale: Adult ss MDM: 11:23 Patient medically screened. ms3 11:23 Differential diagnosis: Sciatica versus muscle spasm versus degenerative disc disease. ms3 11:23 Data reviewed: vital signs, nurses notes, and as a result, I will discharge patient. I ms3 considered the following discharge prescriptions or medication management in the emergency department Medications were administered in the Emergency Department. See MAR. Counseling: I had a detailed discussion with the patient and/or guardian regarding the historical points, exam findings, and any diagnostic results supporting the discharge/admit diagnosis, the need for outpatient follow up. Special discussion: I discussed with the patient/guardian in detail that at this point there is no indication for admission to the hospital. It is understood, however, that if the symptoms persist or worsen the patient needs to return immediately for re-evaluation. ED course: Discussed physical exam findings with patient. Patient given ibuprofen and Flexeril emergency department. Patient to follow-up with Dr. Jack in 2 to 3 days. Patient understands agrees plan. Questions were answered. Return precautions discussed include worsening symptoms, or other concerns. Administered Medications: 12:01 Drug: Ibuprofen PO 600 mg PO once Route: PO; tm6 12:01 Follow up: Response: Medication administered at discharge. tm6 12:01 Drug: Cyclobenzaprine PO 10 mg PO once Route: PO; tm6 12:01 Follow up: Response: Medication administered at discharge. tm6 Disposition Summary: 02/28/24 11:26 Discharge Ordered Notes: Location: Home ms3 Condition: Stable ms3 Diagnosis - Low back pain ms3 Followup: ms3 - With: Private Physician - When: 2 - 3 days - Reason: Recheck today's complaints Discharge Instructions: - Discharge Summary Sheet ms3 - Acute Back Pain, Adult ms3 Forms: - Work release form ss - Medication Reconciliation Form ms3 - Antibiotic Education ms3 - Prescription Opioid Use ms3 - Patient Portal Instructions ms3 - Leadership Thank You Letter ms3 Prescriptions: - Ibuprofen 600 mg Oral Tablet - take 1 tablet ORAL route every 6 hours As needed take with food; 30 tablet; ms3 Refills: 0, Product Selection Permitted - Cyclobenzaprine 10 mg Oral Tablet - take 1 tablet ORAL route every 8 hours As needed; 30 tablet; Refills: 0, ms3 Product Selection Permitted - Medrol (Lion) 4 mg Oral Tablets, Dose Pack - take 1 tablet ORAL route as directed - follow package instructions; 1 packet; ms3 Refills: 0, Product Selection Permitted Signatures: Lacie Harden RN RN ss Jb Phan DO DO ms3 Lavon Cruz RN RN tm6
[2024-02-28] MEDS ORDERED: IBUPROFEN 200 MG TAB PO ONE (11:51)
[2024-02-28] MEDS ORDERED: IBUPROFEN 400 MG TAB ONE (11:51)
[2024-02-28] MEDS ORDERED: CYCLOBENZAPRINE 10 MG TAB ONE (11:52)
--- NOTE | 2024-02-28 12:04 | ER ---
Nurse's Notes [facility] Name: Jb Siddiqui Age: 33 yrs Sex: Male : 1990 Arrival Date: 02/28/2024 Time: 10:51 Bed DX5 Private MD: Diagnosis: Low back pain Presentation: 02/27 11:32 Chief complaint: Patient states: L sided low back pain that began 6 months ago, ss radiates down L leg as well. Coronavirus screen: Client denies travel out of the [place] in the last 14 days. Ebola Screen: Patient denies exposure to infectious person. Patient denies travel to an Ebola-affected area in the 21 days before illness onset. Initial Sepsis Screen: Does the patient meet any 2 criteria? No. Patient's initial sepsis screen is negative. Does the patient have a suspected source of infection? No. Patient's initial sepsis screen is negative. Risk Assessment: Do you want to hurt yourself or someone else? Patient reports no desire to harm self or others. Onset of symptoms is unknown. 11:32 Method Of Arrival: Ambulatory ss 11:32 Acuity: JOSELO 4 ss Historical: - Allergies: 11:34 NKA; ss - PMHx: 11:34 Asthma; ss - Immunization history:: Client reports having NOT received the Covid vaccine. - Infectious Disease History:: Denies. - Social history:: Smoking status: Patient reports the use of cigarette tobacco products, smokes one-half pack cigarettes per day. Screenin:01 [facility] ED Fall Risk Assessment (Adult) History of falling in the last 3 months, tm6 including since admission No falls in past 3 months (0 pts) Confusion or Disorientation No (0 pts) Intoxicated or Sedated No (0 pts) Impaired Gait No (0 pts) Mobility Assist Device Used No (0 pt) Altered Elimination No (0 pt) Score/Fall Risk Level 0 - 2 = Low Risk Oriented to surroundings, Maintained a safe environment, Educated pt \T\ family on fall prevention, incl call for assistance when getting out of bed. Abuse screen: Denies threats or abuse. Denies injuries from another. Nutritional screening: No deficits noted. Tuberculosis screening: No symptoms or risk factors identified. Assessment: 11:45 General: Appears in no apparent distress. Behavior is calm, cooperative. Pain: tm6 Complains of pain in right low back and left low back. Neuro: Level of Consciousness is awake, alert, obeys commands, Oriented to person, place, time, situation. Cardiovascular: Patient's skin is warm and dry. Respiratory: Airway is patent Respiratory effort is even, unlabored, Respiratory pattern is regular, symmetrical. GI: No signs and/or symptoms were reported involving the gastrointestinal system. : No signs and/or symptoms were reported regarding the genitourinary system. EENT: No signs and/or symptoms were reported regarding the EENT system. Derm: No signs and/or symptoms reported regarding the dermatologic system. Musculoskeletal: Reports pain in right low back and left low back. Vital Signs: 11:32 BP 155 / 89; Pulse 96; Resp 17; Temp 98(TE); Pulse Ox 99% on R/A; Weight 136.08 kg; ss Height 5 ft. 11 in. ; Pain 9/10; 11:32 Body Mass Index 41.84 (136.08 kg, 180.34 cm) 11:32 Pain Scale: Adult ED Course: 11:03 Patient arrived in ED. im 11:04 Jb Phan DO is Attending Physician. ms3 11:34 Triage completed. ss 11:34 Arm band placed on right wrist. ss 12:01 Patient has correct armband on for positive identification. Provided Education on: use tm6 of prescription meds. 12:01 No provider procedures requiring assistance completed. Patient did not have IV access tm6 during this emergency room visit. Administered Medications: 12:01 Drug: Ibuprofen PO 600 mg PO once Route: PO; tm6 12:01 Follow up: Response: Medication administered at discharge. tm6 12:01 Drug: Cyclobenzaprine PO 10 mg PO once Route: PO; tm6 12:01 Follow up: Response: Medication administered at discharge. tm6 Medication: 12:01 VIS not applicable for this client. tm6 Outcome: 11:26 Discharge ordered by . ms3 12:01 Discharged to home ambulatory, with family, tm6 12:01 Condition: stable 12:01 Discharge instructions given to patient, family, Instructed on discharge instructions, follow up and referral plans. medication usage, Demonstrated understanding of instructions, follow-up care, medications, Prescriptions given X 3, 12:03 Patient left the ED. tm6 Signatures: Lacie Harden, RN RN ss Jb Phan DO DO ms3 Natasha Muse Tawney, RN RN tm6
[2024-02-29 00:18] VITALS: BP 155/89; TEMP 98; O2SAT 99
== END 2024-02-28 12:03 | disposition home or self-care (01) ==
LOC: ER 10:51
DX: M54.50 Low back pain, unspecified (principal)
CPT/HCPCS: 99283

== ENCOUNTER 2024-03-10 10:01 | Emergency (ER) | payer OTHER ==
[2024-03-10] MEDS ORDERED: LIDOCAINE 1% 20 ML MDV ONE (10:23)
--- NOTE | 2024-03-10 11:41 | RAD REPORT ---
EXAM: XR RIGHT HAND HISTORY: Pain. thumb laceration COMPARISON: None TECHNIQUE: Multiple projections of the right hand submitted. FINDINGS: Soft tissue laceration is seen distal aspect of the first finger.. No underlying radiopaque foreign body or fracture.
--- NOTE | 2024-03-10 11:47 | EDPHYS ---
Physician Documentation [facility] Name: Jb Siddiqui Age: 33 yrs Sex: Male : 1990 Arrival Date: 03/10/2024 Time: 10:01 Bed 12 Private MD: ED Physician Jassi Cordero HPI: 03/10 11:42 This 33 yrs old Black Male presents to ER via Ambulatory with complaints of Thumb rn Laceration. 11:42 The patient has a laceration occurred at work. Onset: The symptoms/episode rn began/occurred just prior to arrival. The patient has not experienced similar symptoms in the past. Patient accidentally lacerated right thumb while using slicing machine. Last tetanus 4 years ago. No allergies.. Historical: - Allergies: 10:21 NKA; hb - PMHx: 10:21 Asthma; hb - Immunization history:: Adult Immunizations up to date. - Infectious Disease History:: Denies. - Social history:: Smoking status: Patient denies any tobacco usage or history of. - Family history:: not pertinent. - Hospitalizations: : No recent hospitalization is reported. ROS: 11:42 Constitutional: Negative for fever, chills, and weight loss, MS/Extremity: Positive for rn laceration to right thumb Exam: 11:42 MS/ Extremity: Pulses equal, no cyanosis. Neurovascular intact. Full, normal range rn of motion. 4 cm very superficial laceration to the right thumb with slow venous bleeding. No foreign body noted. Extends from interphalangeal joint to edge of thumb nail. Vital Signs: 10:16 BP 153 / 98; Pulse 95; Resp 17; Temp 97.9; Pulse Ox 100% on R/A; bc6 Laceration: 11:32 Wound Repair of 4cm ( 1.6in ) subcutaneous laceration to right thumb. Distal rn neuro/vascular/tendon intact. Anesthesia: Wound infiltrated with 3 mls of 1% lidocaine. Wound prep: Extensive cleansing by nurse. Skin closed with 8 4-0 Prolene using interrupted sutures and sterile technique. Dressed with 4x4's. Patient tolerated well. MDM: 10:04 Patient medically screened. rn 11:42 Differential diagnosis: superficial laceration. Data reviewed: vital signs, nurses rn notes, radiologic studies, and as a result, I will discharge patient. Independent interpretation of the following test(s) in the Emergency Department X-Ray: My interpretation is X-ray right hand negative for fracture per my interpretation. Counseling: I had a detailed discussion with the patient and/or guardian regarding the historical points, exam findings, and any diagnostic results supporting the discharge/admit diagnosis, radiology results, the need for outpatient follow up, to return to the emergency department if symptoms worsen or persist or if there are any questions or concerns that arise at home. Special discussion: I discussed with the patient/guardian in detail that at this point there is no indication for admission to the hospital. It is understood, however, that if the symptoms persist or worsen the patient needs to return immediately for re-evaluation. 03/10 10:08 Order name: XRAY Hand RIGHT 3 View; Complete Time: 11:42 rn 03/10 10:08 Order name: sports team marketing intern Administered Medications: 11:00 Drug: Lidocaine Infiltration (1 %) 1 vials 20 ml Infiltration once; to bedside Volume: hb 20 ml; Route: Infiltration; 11:50 Follow up: Response: No adverse reaction hb Disposition Summary: 03/10/24 11:47 Discharge Ordered Notes: Location: Home rn Problem: new rn Symptoms: have improved rn Condition: Stable rn Diagnosis - Laceration without foreign body of right thumb with damage to nail, initial rn encounter Followup: rn - With: Private Physician - When: As needed - Reason: Recheck today's complaints, Re-evaluation by your physician Followup: rn - With: Emergency Department - When: 14 days - Reason: Staple/Suture removal Discharge Instructions: - Discharge Summary Sheet rn - Laceration Care, Adult rn Forms: - Medication Reconciliation Form rn - Antibiotic rn military - Prescription Opioid Use rn - Patient Portal Instructions rn - Leadership Thank You Letter rn Prescriptions: - Augmentin 875-125 mg Oral Tablet - take 1 tablet ORAL route every 12 hours for 10 days; 20 tablet; Refills: 0, rn Product Selection Permitted - Tramadol 50 mg Oral Tablet - take 1 tablet ORAL route every 8 hours as needed; 12 tablet; Refills: 0, rn Product Selection Permitted Signatures: Dispatcher [employer] Jassi Alegria MD MD rn Baxter, Heather, RN RN hb
--- NOTE | 2024-03-10 11:47 | ER ---
Nurse's Notes [facility] Name: Jb Siddiqui Age: 33 yrs Sex: Male : 1990 Arrival Date: 03/10/2024 Time: 10: Bed 12 Private MD: Diagnosis: Laceration without foreign body of right thumb with damage to nail, initial encounter Presentation: 03/10 10:03 Method Of Arrival: Ambulatory hb 10:03 Coronavirus screen: At this time, the client does not indicate any symptoms associated hb with coronavirus-19. Ebola Screen: No symptoms or risks identified at this time. Initial Sepsis Screen: Does the patient meet any 2 criteria? No. Patient's initial sepsis screen is negative. Does the patient have a suspected source of infection? No. Patient's initial sepsis screen is negative. Risk Assessment: Do you want to hurt yourself or someone else? Patient reports no desire to harm self or others. Onset of symptoms was March 10, 2024. 10:03 Acuity: JOSELO 4 hb 10:03 Chief complaint: Right thumb laceration from [employer] just [employer], bleeding controlled. hb Historical: - Allergies: 10:21 NKA; hb - PMHx: 10:21 Asthma; hb - Immunization history:: Adult Immunizations up to date. - Infectious Disease History:: Denies. - Social history:: Smoking status: Patient denies any tobacco usage or history of. - Family history:: not pertinent. - Hospitalizations: : No recent hospitalization is reported. Screenin:30 [facility] ED Fall Risk Assessment (Adult) History of falling in the last 3 months, hb including since admission No falls in past 3 months (0 pts) Confusion or Disorientation No (0 pts) Intoxicated or Sedated No (0 pts) Impaired Gait No (0 pts) Mobility Assist Device Used No (0 pt) Altered Elimination No (0 pt) Score/Fall Risk Level 0 - 2 = Low Risk Oriented to surroundings, Maintained a safe environment, Educated pt \T\ family on fall prevention, incl call for assistance when getting out of bed. Abuse screen: Denies threats or abuse. Denies injuries from another. Nutritional screening: No deficits noted. Tuberculosis screening: No symptoms or risk factors identified. Assessment: 10:30 General: Appears in no apparent distress. uncomfortable, Behavior is calm, cooperative. hb Pain: Pain currently is 10 out of 10 on a pain scale. Neuro: Level of Consciousness is awake, alert, obeys commands, Oriented to person, place, time, situation. Cardiovascular: Patient's skin is warm and dry. Respiratory: Respiratory effort is even, unlabored, Respiratory pattern is regular, symmetrical. GI: No signs and/or symptoms were reported involving the gastrointestinal system. : No signs and/or symptoms were reported regarding the genitourinary system. EENT: No signs and/or symptoms were reported regarding the EENT system. Derm: Skin is pink, warm \T\ dry. Musculoskeletal: No signs and/or symptoms reported regarding the musculoskeletal system. Injury Description: Laceration sustained to palmar aspect of distal phalanx of right thumb is 2.6 to 7.5 cm long. 11:30 Reassessment: Patient appears in no apparent distress at this time. Patient and/or hb family updated on plan of care and expected duration. Pain level reassessed. Patient is alert, oriented x 3, equal unlabored respirations, skin warm/dry/pink. Vital Signs: 10:16 BP 153 / 98; Pulse 95; Resp 17; Temp 97.9; Pulse Ox 100% on R/A; bc6 ED Course: 10:02 Patient arrived in ED. mr 10:04 Jassi Cordero MD is Attending Physician. rn 10:21 Triage completed. hb 10:21 Arm band placed on. hb 10:26 Kasandra Aviles, NORMAN is Primary Nurse. hb 10:58 XRAY Hand RIGHT 3 View In Process Unspecified. EDMS 11:30 Patient has correct armband on for positive identification. hb 12:13 Provided Education on: medications, wound care, followup. hb 12:13 No provider procedures requiring assistance completed. Patient did not have IV access hb during this emergency room visit. Administered Medications: 11:00 Drug: Lidocaine Infiltration (1 %) 1 vials 20 ml Infiltration once; to bedside Volume: hb 20 ml; Route: Infiltration; 11:50 Follow up: Response: No adverse reaction hb Medication: 11:30 VIS not applicable for this client. hb Outcome: 11:47 Discharge ordered by MD. rn 12:11 Patient left the ED. hb 12:13 Discharged to home ambulatory, hb 12:13 Condition: stable 12:13 Discharge instructions given to patient, Instructed on discharge instructions, follow up and referral plans. medication usage, wound care, Demonstrated understanding of instructions, follow-up care, medications, wound care, Prescriptions given X 2, Signatures: Dispatcher [employer] Lorin Shaikh, Jassi Santos MD MD rn Baxter, Heather, RN RN hb [place], [facility]
[2024-03-10 12:43] VITALS: BP 153/98; TEMP 97.9; O2SAT 100
== END 2024-03-10 12:11 | disposition home or self-care (01) ==
LOC: ER 10:01
DX: S61.111A Laceration without foreign body of right thumb with damage to nail, initial encounter (principal)
CPT/HCPCS: 73130; 12002; J2001